=== PATIENT | female | born 1960 | race Caucasian/White ===

== ENCOUNTER → 2017-10-18 | Outpatient (CLI) | payer OTHER ==
--- NOTE | 2017-10-18 15:32 | WOMENS IMAGING REPORT ---
EXAM DESCRIPTION: U/S ABDOMEN LIMITED COMPLETED DATE/TIME: 10/18/2017 10:25 am REASON FOR STUDY: RUQ ABDOMINAL PAIN; R10.11 R10.11 RIGHT UPPER QUADRANT PAIN COMPARISON: 04/05/2013 TECHNIQUE: Dynamic and static grayscale images acquired of the abdomen and recorded on PACS. Additio nal selected color Doppler and spectral images recorded. LIMITATIONS: None. FINDINGS: PANCREAS: No masses. Visualized pancreatic duct normal caliber. LIVER: No masses. Echotexture normal. LIVER VASCULATURE: Normal directional flow of the main portal vein and hepatic veins. GALLBLADDER: No stones. Normal wall thickness. No pericholecystic fluid. ULTRASOUND-DETECTED PRINCE'S SIGN: Negative. INTRAHEPATIC DUCTS AND COMMON DUCT: CBD and intrahepatic ducts normal caliber. No filling defects. INFERIOR VENA CAVA: Normal flow. AORTA: No aneurysm. RIGHT KIDNEY: Normal size. Normal echogenicity. No solid or suspicious masses. No hydronephrosis. No calcifications. PERITONEAL AND RIGHT PLEURAL SPACE: No ascites or effusions. OTHER: No other significant findings. IMPRESSION: NORMAL RIGHT UPPER QUADRANT ULTRASOUND. TECHNICAL DOCUMENTATION: JOB ID: [id number] [employer]- All Rights Reserved
== END ==
LOC: WI 08:48
PROVIDERS: ATTEND Family Medicine
DX: R10.11 Right upper quadrant pain (principal)
CPT/HCPCS: 76705

== ENCOUNTER → 2017-10-18 | Outpatient (CLI) | payer OTHER ==
[2017-10-18 11:11] LABS: ABSOLUTE BASOPHILS # (AUTO) 0.1 10^3/uL (0.0-0.2); ABSOLUTE EOSINOPHILS # (AUTO) 0.3 10^3/uL (0.0-0.6); ABSOLUTE LYMPHOCYTES (AUTO) 3.2 10^3/uL (0.5-4.7); ABSOLUTE MONOCYTES (AUTO) 0.7 10^3/uL (0.1-1.4); ABSOLUTE NEUT (AUTO) 4.7 10^3/uL (1.7-8.2); BASOPHILS % (AUTO) 1.2 % (0-2); HEMATOCRIT 41.1 % (36.0-47.0); HEMOGLOBIN 13.9 g/dL (12.0-15.5); LYMPHOCYTES % (AUTO) 35.5 % (13-45); MEAN CORPUSCULAR HEMOGLOBIN 31.2 pg (27.0-33.4); MEAN CORPUSCULAR HGB CONC 33.8 g/dL (32.0-36.0); MEAN CORPUSCULAR VOLUME 92 fl (80-97); PLATELET COUNT 302 10^3/uL (150-450); RED BLOOD COUNT 4.45 10^6/uL (3.72-5.28); RED CELL DISTRIBUTION WIDTH 13.4 % (11.5-14.0); SEGMENTED NEUTROPHILS % (AUTO) 52.3 % (42-78); TOTAL CELLS COUNTED % (AUTO) 100 %; WHITE BLOOD COUNT 9.1 10^3/uL (4.0-10.5)
[2017-10-18 11:52] LABS: ALANINE AMINOTRANSFERASE 19 U/L (9-52); ALBUMIN 4.5 g/dL (3.5-5.0); ALKALINE PHOSPHATASE 116 U/L (38-126); ANION GAP 11 (5-19); ASPARTATE AMINO TRANSFERASE 19 U/L (14-36); BILIRUBIN,DIRECT 0.2 mg/dL (0.0-0.4); BILIRUBIN,TOTAL 0.2 mg/dL (0.2-1.3); BLOOD UREA NITROGEN 10 mg/dL (7-20); CALCIUM 10.1 mg/dL (8.4-10.2); CARBON DIOXIDE 27 mmol/L (22-30); CHLORIDE 106 mmol/L (98-107); GLUCOSE 93 mg/dL (75-110); POTASSIUM 4.8 mmol/L (3.6-5.0); SODIUM 143.5 mmol/L (137-145)
[2017-10-18 12:03] LABS: DIRECT LDL 104 mg/dL (<100)
[2017-10-18 12:05] LABS: TRIGLYCERIDES 644 mg/dL (<150)
== END ==
LOC: OD 09:42
PROVIDERS: ATTEND Family Medicine
DX: R10.11 Right upper quadrant pain (principal)
CPT/HCPCS: 36415; 80053; 80061; 84443; 85025

== ENCOUNTER → 2017-10-20 | Outpatient (CLI) | payer OTHER ==
--- NOTE | 2017-10-21 08:39 | WOMENS IMAGING REPORT ---
EXAM DESCRIPTION: BILAT SCREENING MAMMO W/CAD COMPLETED DATE/TIME: 10/20/2017 11:45 am REASON FOR STUDY: SCREENING MAMMO Z12.31 ENCNTR SCREEN MAMMOGRAM FOR MALIGNANT NEOPLASM OF MELINDA COMPARISON: 2008, 2012 TECHNIQUE: Standard craniocaudal and mediolateral oblique views of each breast recorded using digita l acquisition. LIMITATIONS: None. FINDINGS: No masses, calcifications or architectural distortion. No areas of suspicion. Read with the assistance of CAD. .[facility] - R2 Cenova Version 1.3 .[facility] - R2 Cenova Version 1.3 .[facility] - R2 Cenova Version 2.4 .[facility] - R2 Cenova Version 2.4 .[facility] - R2 [employer] Version 9.2 IMPRESSION: NORMAL MAMMOGRAM. BIRADS 1. BREAST DENSITY: b. There are scattered areas of fibroglandular density. BIRAD: 1 NEGATIVE RECOMMENDATION: ROUTINE SCREENING COMMENT: The patient has been notified of the results by letter per MQSA requirements. Additional no tification policies are in place for contacting patient with suspicious or incomplete findings. Quality ID #225: The [employer] recommends an annual screening mammogram for women aged 40 years or over. This facility utilizes a reminder system to ensure that all patients receive reminder letters, and/or direct phone calls for appointments. This includes reminders for routine scr eening mammograms, diagnostic mammograms, or other Breast Imaging Interventions when appropriate. Th is patient will be placed in the appropriate reminder system. The [employer] (ACR) has developed recommendations for screening MRI of the breast s in certain patient populations, to be used in conjunction with mammography. Breast MRI surveillanc e may be appropriate for women with more than 20% lifetime risk of developing breast cancer as deter mined by genetic testing, significant family history of the disease, or history of mantle radiation f or Hodgkins Disease. ACR Practice Guidelines 2008. TECHNICAL DOCUMENTATION: FINDING NUMBER: (1) ASSESSMENT: (1) JOB ID: [id number] [employer]- All Rights Reserved
== END ==
LOC: WI 10:56
PROVIDERS: ATTEND Family Medicine
DX: Z12.31 Encounter for screening mammogram for malignant neoplasm of breast (principal)
CPT/HCPCS: 77067

== ENCOUNTER → 2017-10-26 | Outpatient (CLI) | payer MEDICAID, MEDICARE, OTHER ==
--- NOTE | 2017-10-26 14:55 | RADIOLOGY REPORT (SQ) ---
EXAM DESCRIPTION: NM HIDA SCAN WITH CCK COMPLETED DATE/TIME: 10/26/2017 2:33 pm REASON FOR STUDY: R10.11 RIGHT UPPER QUADRANT PAIN R10.11 RIGHT UPPER QUADRANT PAIN COMPARISON: Right upper quadrant ultrasound 10/18/2017 RADIONUCLIDE AND DOSE: DOSAGE RADIONUCLIDE: 5.2 millicuries Tc99m Mebrofenin. DOSAGE CCK: 1.4 mcg micrograms. DOSAGE MORPHINE: Not required. The route of agent administration: Intravenous TECHNIQUE: Serial imaging right upper quadrant up to 60 minutes following injection of radionuclide. CCK injected after gallbladder visualized. LIMITATIONS: None. FINDINGS: LIVER: Normal visualization without areas of photopenia. INTRAHEPATIC BILE DUCTS: Normal visualization COMMON BILE DUCT: Normal visualization GALLBLADDER: Normal visualization. Calculated ejection fraction of 23%. Normal range is greater th an 35%. PHYSICAL RESPONSE: Patients presenting complaint was reproduced. OTHER: No other significant finding. IMPRESSION: Biliary dyskinesia, with decreased gallbladder ejection fraction. IV cholecystokinin re produced the patient's symptoms. No scintigraphic evidence of cystic duct or common duct obstruction TECHNICAL DOCUMENTATION: JOB ID: [id number]- All Rights Reserved Reading location - IP/workstation name: [email or web address]
== END ==
LOC: RAD 13:51
PROVIDERS: ATTEND Family Medicine
DX: R10.11 Right upper quadrant pain (principal)
CPT/HCPCS: 78227; J2805; A9537; Q9969

== ENCOUNTER → 2018-10-18 | Outpatient (CLI) | payer OTHER ==
--- NOTE | 2018-10-19 08:02 | XCELERA REPORT ---
[address] [place] [address] Lower Extremity Arterial Evaluation Name: TISHA GONZALEZ Age: 58 yrs Gender: Female : 1960 Patient Status: Outpatient Patient Location: [facility] Study Date: 10/18/2018 01:09 PM Procedure: A color flow and duplex scan of the lower extremity arteries was performed on the left with velocity and waveform anaylsis. Reason For Study: PVD Ordering Physician: DOREEN WEST Performed By: Phong Reyes Measurements and Calculations Right Left SURGICAL SERVICES DIRECTOR PSV 133.6 cm/sec Prox PFA PSV 147.7 cm/sec Prox SFA PSV 107.5 cm/sec Mid SFA PSV -16.5 cm/sec Dist SFA PSV -107.5cm/sec Prox Pop A PSV 19.6 cm/sec Dist Pop A PSV -20.4 cm/sec Dist BABAK PSV 13.9 cm/sec Dist SUPERVISOR INVENTORY MERCHANDISING PSV 15.7 cm/sec Greyson Pedis PSV -74.6 -18.9 cm/sec Right Side Arterial Evaluation Biphasic waveform at the Dorsalis Pedis. Left Side Arterial Evaluation Normal velocity and triphasic waveforms noted in the Common Femoral artery. Monophasic with decreased velocity, spectral broadening form the distal Femoral to the infrageniculate vessels . Ankle Brachial index not obtained due to inability to tolerate. Interpretation Summary Severe hemodynamically significant lesions in the left lower extremity only, on duplex imaging, at rest. Affected area in the Femoral artery, high grade. Spot check on right suggests some degree of arterial compromise. : DOREEN WEST > Tony Stuton
== END ==
LOC: SP 12:44
PROVIDERS: ATTEND Family Medicine
DX: I73.9 Peripheral vascular disease, unspecified (principal)
CPT/HCPCS: 93926

== ENCOUNTER → 2019-05-11 | Outpatient (CLI) | payer MEDICAID, OTHER ==
--- NOTE | 2019-05-11 14:02 | WOMENS IMAGING REPORT ---
EXAM DESCRIPTION: BILAT SCREENING MAMMO W/CAD COMPLETED DATE/TIME: 05/11/2019 11:15 am REASON FOR STUDY: Z12.31 ENCOUNTER FOR SCREENING MAMMOGRAM FOR MALIGNANT NEOPLASM OF BREAST Z12.31 ENCNTR SCREEN MAMMOGRAM FOR MALIGNANT NEOPLASM OF MELINDA COMPARISON: Multiple since 2008 EXAM PARAMETERS: Standard craniocaudal and mediolateral oblique views of each breast recorded using digital acquisition. Read with the assistance of CAD. .[facility] - Talk[employer]umer Version 9.2 LIMITATIONS: None. FINDINGS: Findings present which are benign by mammographic criteria. No suspicious masses, calcifi cations or architectural distortion. Pertinent benign findings: Benign right breast nodules, benign left breast calcifications Benign mammographic findings may include one or more of the following: Smooth masses, popcorn/rim/co arse calcifications, asymmetries, post-procedure changes, and lesions with long-standing stability. IMPRESSION: BENIGN MAMMOGRAPHIC FINDINGS. BIRADS 2 BREAST DENSITY: a. The breasts are almost entirely fatty. BIRAD: ASSESSMENT: 2 BENIGN FINDING(S) RECOMMENDATION: ROUTINE SCREENING COMMENT: The patient has been notified of the results by letter per SA requirements. Additional no tification policies are in place for contacting patient with suspicious or incomplete findings. Quality ID #225: The [employer] recommends an annual screening mammogram for women aged 40 years or over. This facility utilizes a reminder system to ensure that all patients receive reminder letters, and/or direct phone calls for appointments. This includes reminders for routine scr eening mammograms, diagnostic mammograms, or other Breast Imaging Interventions when appropriate. Th is patient will be placed in the appropriate reminder system. TECHNICAL DOCUMENTATION: FINDING NUMBER: (1) ASSESSMENT: (1) JOB ID: [id number] [employer]- All Rights Reserved Reading location - IP/workstation name: [email or web address]
== END ==
LOC: WI 10:53
PROVIDERS: ATTEND Family Medicine
DX: Z12.31 Encounter for screening mammogram for malignant neoplasm of breast (principal)
CPT/HCPCS: 77067

== ENCOUNTER 2019-06-02 13:28 | Day surgery (SDC) | payer MEDICAID, OTHER ==
[2019-05-26 09:51] LABS: HEMATOCRIT 40.3 % (36.0-47.0); HEMOGLOBIN 13.5 g/dL (12.0-15.5); MEAN CORPUSCULAR HEMOGLOBIN 30.4 pg (27.0-33.4); MEAN CORPUSCULAR HGB CONC 33.5 g/dL (32.0-36.0); MEAN CORPUSCULAR VOLUME 91 fl (80-97); PLATELET COUNT 279 10^3/uL (150-450); RED BLOOD COUNT 4.44 10^6/uL (3.72-5.28); RED CELL DISTRIBUTION WIDTH 14.2 % (11.5-14.0); WHITE BLOOD COUNT 10.5 10^3/uL (4.0-10.5)
--- NOTE | 2019-05-26 09:54 | RADIOLOGY REPORT (SQ) ---
EXAM DESCRIPTION: CHEST PA/LATERAL COMPLETED DATE/TIME: 05/26/2019 9:11 am REASON FOR STUDY: PRE-OP COMPARISON: None. EXAM PARAMETERS: NUMBER OF VIEWS: two views TECHNIQUE: Digital Frontal and Lateral radiographic views of the chest acquired. RADIATION DOSE: NA LIMITATIONS: none FINDINGS: LUNGS AND PLEURA: No opacities, masses or pneumothorax. No pleural effusion. MEDIASTINUM AND HILAR STRUCTURES: No masses or contour abnormalities. HEART AND VASCULAR STRUCTURES: Heart normal size. No evidence for failure. BONES: No acute findings. HARDWARE: None in the chest. OTHER: No other significant finding. IMPRESSION: NO SIGNIFICANT RADIOGRAPHIC FINDING IN THE CHEST. TECHNICAL DOCUMENTATION: JOB ID: [id number] [employer]- All Rights Reserved Reading location - IP/workstation name: [email or web address]
[2019-05-26 10:21] LABS: ALBUMIN 4.3 g/dL (3.5-5.0); ALKALINE PHOSPHATASE 117 U/L (38-126); ANION GAP 9 (5-19); ASPARTATE AMINO TRANSFERASE 21 U/L (14-36); BILIRUBIN,DIRECT 0.2 mg/dL (0.0-0.4); BILIRUBIN,TOTAL 0.4 mg/dL (0.2-1.3); BLOOD UREA NITROGEN 10 mg/dL (7-20); CALCIUM 9.7 mg/dL (8.4-10.2); CARBON DIOXIDE 28 mmol/L (22-30); CHLORIDE 103 mmol/L (98-107); GLUCOSE 102 mg/dL (75-110); POTASSIUM 4.2 mmol/L (3.6-5.0); TOTAL PROTEIN 7.2 g/dL (6.3-8.2)
--- NOTE | 2019-05-27 08:57 | EKG REPORT ---
SEVERITY:- BORDERLINE ECG - SINUS RHYTHM LOW VOLTAGE THROUGHOUT BORDERLINE T ABNORMALITIES, ANT-LAT LEADS : Confirmed by: Rory Miles 27-May-2019 08:57:05
[~2019-06-02 13:28] MED LIST: ACETAMINOPHEN 325 MG TABLET PO PRN; GLYCOPYRROLATE 1 MG/5 ML VIAL ONE; IBUPROFEN 800 MG in NORMAL SALINE 250 ML IV PRN; LACTATED RINGERS 1000 ML IV PRN; NEOSTIGMINE METHYLSULFATE 10 MG/10 ML VIAL ONE; ROCURONIUM BROMIDE INJ 50 MG/5 ML VIAL IV ONE; SUCCINYLCHOLINE CHLORIDE INJ 200 MG/10 ML VIAL ONE; VANCOMYCIN HCL 1,000 MG in DEXTROSE 5%-WATER 250 ML IV PRN
[2019-06-02] MEDS ORDERED: ACETAMINOPHEN 325 MG TABLET ONE (13:39)
[2019-06-02] MEDS ORDERED: BUPIVACAINE HCL 0.25 % INJ/PF (2.5 MG/1 ML) 30 ML VIAL ONE (14:14)
[2019-06-02] MEDS ORDERED: SCOPOLAMINE HYDROBROMIDE 1.5 MG PATCH.TD72 ONE (14:54)
[2019-06-02] MEDS ORDERED: FAMOTIDINE INJ/PF 20 MG/2 ML SDV IV ONE (14:54)
[2019-06-02] MEDS ORDERED: MIDAZOLAM 2 MG/2 ML INJ ONE ×2 (14:54→15:05)
[2019-06-02] MEDS ORDERED: ALBUTEROL SULFATE 0.083% NEB 2.5 MG/3 ML AMPUL NEB ONE (14:54)
[2019-06-02] MEDS ORDERED: METOCLOPRAMIDE HCL INJ/PF 10 MG/2 ML SDV ONE (14:54)
[2019-06-02] MEDS ORDERED: RINGERS SOLUTION,LACTATED 1,000 ML IV ONE (15:00)
[2019-06-02] MEDS ORDERED: DEXAMETHASONE SOD PHOSPHATE INJ 4 MG/1 ML VIAL ONE (15:05)
[2019-06-02] MEDS ORDERED: ONDANSETRON HCL INJ/PF 4 MG/2 ML SDV ONE (15:05)
[2019-06-02] MEDS ORDERED: MORPHINE SULFATE 10 MG/ML INJ ONE (15:05)
[2019-06-02] MEDS ORDERED: FENTANYL CITRATE INJ/PF 100 MCG/2 ML AMPUL ONE (15:05)
[2019-06-02] MEDS ORDERED: PROPOFOL INJ 200 MG/20 ML VIAL IV ONE (15:06)
[2019-06-02] MEDS ORDERED: BUPIVACAINE HCL 0.25 % INJ/PF (2.5 MG/1 ML) 30 ML VIAL INJ ONE (16:32)
[2019-06-02] MEDS ORDERED: PROMETHAZINE HCL INJ 25 MG/1 ML VIAL IV PRN ×2 (17:08)
[2019-06-02] MEDS ORDERED: MORPHINE SULFATE 10 MG/ML INJ IV PRN (17:08)
[2019-06-02] MEDS ORDERED: FENTANYL CITRATE INJ/PF 100 MCG/2 ML AMPUL IV PRN ×3 (17:08)
[2019-06-02] MEDS ORDERED: MEPERIDINE HCL/PF INJ 25 MG/1 ML DISP.SYRIN IV PRN (17:08)
[2019-06-02] MEDS ORDERED: DIPHENHYDRAMINE HCL 50 MG/ML VIAL IV PRN (17:08)
[2019-06-02] MEDS ORDERED: PROMETHAZINE HCL INJ 25 MG/1 ML VIAL ONE (18:38)
[2019-06-02 19:24] VITALS: BP 107/72
--- NOTE | 2019-06-05 09:27 | Discharge Summary ---
Discharge Summary (SDC) - Discharge Final Diagnosis: symptomatic gallstones Date of Surgery: 06/02/19 Discharge Date: 06/02/19 Condition: Stable Forms: ASU Anesthesia D/C Instruction, Discharge POC-Surgical Service Treatment or Instructions: DIET TOLERATED MAY SHOWER IN 48 HRS LEAVE STERI STRIPS IN PLACE. THEY WILL FALL OFF WHEN THEY ARE READY NO LIFTING GREATER THAN 10 LBS FOR 2 WEEKS NO TUB BATHS, SWIMMING OR HOT TUBS WATCH FOR SIGNS OF INFECTION: FEVER OVER 101, REDNESS, FOUL SMELLING DRAINAGE Referrals: JOEL GARCIA MD [ACTIVE STAFF] - 06/12/19 9:45 am DOREEN WEST DO [Primary Care Provider] - Discharge Diet: As Tolerated Respiratory Treatments at Home: Deep Breathing/Coughing, Incentive Spirometer Discharge Activity: No Lifting Over 10 Pounds, No Lifting/Push/Pulling, No tub bath, Walk Frequently Home Care Assistance: None Needed Report the Following to Your Physician Immediately: Shortness of Breath, Nausea, Vomiting, Increase in Pain, Fever over 101 Degrees, Unusual Bleeding, Drainage- Foul Smelling
--- NOTE | 2019-06-05 09:51 | Operative Report ---
Nonrecallable Operative Report DATE OF SURGERY: 06/02/19 PREOPERATIVE DIAGNOSIS: symptomatic gallstones POSTOPERATIVE DIAGNOSIS: same as above OPERATION: laparoscopic cholecystectomy SURGEON: JOEL GARCIA ANESTHESIA: GA TISSUE REMOVED OR ALTERED: gallbladder COMPLICATIONS: none apparent ESTIMATED BLOOD LOSS: minimal PROCEDURE: Implants: none [id number]: After informed consent obtained, the pt was laid in the supine position. The area of the abdomen was prepped and draped in a normal, sterile fashion. A supraumbilical incision was created with a 15 blade scalpel. The incision was deepened using sharp and blunt dissection. The linea alba fascia was incisied, and the abdomen was entered sharply. The balloon trocar was inserted, and pneumoperitoneum was acheived. Next, a subxyphoid 5mm trocar was placed under direct laparoscopic visualization. 2 more 5mm trocars were placed in the right upper quadrant in similar fashion. Atraumatic graspers were placed through the 5mm ports. The gallbladder was retracted cephalad and laterally. Dissection was begun in the triangle of Calot. The cystic duct and cystic artery were fully visualized and skeletonized, seeing the liver through the triangle. Once the critical view of safety was obtained, the cystic duct and cystic artery were clipped and cut with laparoscopic instruments. The gallbladder was removed from the liver using electrocautery. The gallbladder was pulled out through the umbilicus. The camera was reinserted, and the hilum was inspected. The was no leakage of blood or bile in the hilum. Once this was confirmed, the 5mm trocars were removed. The supraumbilical trocar was removed, and pneumoperitoneum was relieved. The supraumbilical fascia was closed using 0 Vicryl suture in figure of eight fashion. The overlying skin was closed using 4-0 Vicryl Rapide in running subcuticular fashion. A dressing was placed and the procedure was concluded. All sponge, instrument, and needle counts were correct x2. Condition: stable.
== END 2019-06-02 19:23 | disposition home or self-care (01) ==
LOC: OROUT 13:28
PROVIDERS: ATTEND Surgery
DX: K81.1 Chronic cholecystitis (principal); K29.70 Gastritis, unspecified, without bleeding; R00.0 Tachycardia, unspecified; E78.00 Pure hypercholesterolemia, unspecified; I73.9 Peripheral vascular disease, unspecified; F17.210 Nicotine dependence, cigarettes, uncomplicated; E66.3 Overweight; Z68.24 Body mass index [BMI] 24.0-24.9, adult; Z79.82 Long term (current) use of aspirin; Z79.899 Other long term (current) drug therapy
CPT/HCPCS: 93005; 86900; 86901; 36415 ×2; 86850; 85027; 80053; 88304 ×2; 71046; 93010; 00790; 47562; J3490 ×4; J2250; J3010; J2765; J2270; J2710; J2550; J0330; J2405; S0020; J7060; J7050; J2704; J3370; S0028; J1741; 790; J1100